=== PATIENT | male | born 1960 | race Caucasian/White ===

== ENCOUNTER 2019-11-10 08:40 | Emergency (ER) | payer SELFPAY ==
[2019-11-10] MEDS ORDERED: IBUPROFEN 400 MG TABLET (FP) PO ONE ×2 (08:58→09:22)
--- NOTE | 2019-11-10 08:58 | PDOC ---
History of Present Illness - General Chief Complaint: Injury Stated Complaint: RT 2ND FINGER INJURY Time Seen by Provider: 11/10/19 08:47 History Source: Patient Exam Limitations: No Limitations - History of Present Illness Initial Comments: 59 yo M presents s/p avulsion injury to R index finger. He states that he was working with a trash truck, had his finger inside a metal hole as something heavy moved by. It avulsed the tip of his finger. He has applied direct pressure. Last tdap 2013. No other injuries. C/o moderate pain at the site. Mild oozing of blood. Past History - Past Medical History Allergies/Adverse Reactions: Allergies Allergy/AdvReac Type Severity Reaction Status Date / Time No Known Allergies Allergy Verified 11/10/19 08:41 Home Medications: Ambulatory Orders Escitalopram Oxalate [Lexapro -] 20 mg PO DAILY 01/12/14 Amox-Tr/K Cl [Augmentin - 875Mg Tablet] 1 tab PO BID #14 tablet 11/10/19 - Surgical History Abdominal Surgery: Yes (HERNIA) - Immunization History Immunization Up to Date: Yes - Psycho Social/Smoking Cessation Hx Smoking History: Unknown if ever smoked Have you smoked in the past 12 months: No Hx Alcohol Use: Yes (SOCIAL) Drug/Substance Use Hx: No Substance Use Type: None Review of Systems - Review of Systems Able to Perform ROS?: Yes Comments:: GENERAL/CONSTITUTIONAL: No fever or chills. No weakness. MUSCULOSKELETAL: No joint or muscle swelling or pain. No neck or back pain. SKIN: No rash. +Skin avulsion to tip of R 2nd finger NEUROLOGIC: No headache, vertigo, loss of consciousness, or change in strength/ sensation. ENDOCRINE: No increased thirst. No abnormal weight change. HEMATOLOGIC/LYMPHATIC: No anemia, easy bleeding, or history of blood clots. *Physical Exam - Physical Exam GENERAL: Awake, alert, and fully oriented, in no acute distress HEAD: No signs of trauma EXTREMITIES: Normal range of motion, no edema. No clubbing or cyanosis. No cords, erythema, or tenderness NEUROLOGICAL: Cranial nerves II through XII grossly intact. Normal speech, normal gait. Motor and sensation intact SKIN: Warm, dry, normal turgor, no rashes. +Skin avulsion to the tip of the R index finger, slight oozing of blood. +Exposure of subcutaneous fat. Tendon function intact. Medical Decision Making - Medical Decision Making 11/10/19 08:59 Wound was irrigated with saline. Will give tdap in ED. XR to r/o fracture, then will contact ortho. Pt given motrin 400 mg, as he took 400 mg this morning at 5: 30 for something unrelated. 11/10/19 10:36 Case d/w Dr. Costello. Recommended dressing with xeroform, splint, f/u with Dr. Hess in the office on Wednesday (it is currently Wednesday). Discharge - Discharge Information Problems reviewed: Yes Clinical Impression/Diagnosis: Avulsion, finger tip Qualifiers: Encounter type: initial encounter Qualified Code(s): S61.209A - Unspecified open wound of unspecified finger without damage to nail, initial encounter Condition: Stable Disposition: HOME - Admission No - Additional Discharge Information Prescriptions: Amox-Tr/K Cl [Augmentin - 875Mg Tablet] 1 tab PO BID #14 tablet - Follow up/Referral Referrals: Darwin Hess MD [Staff Physician] - - Patient Discharge Instructions Patient Printed Discharge Instructions: DI for Avulsion Laceration (Not Requiring Sutures) - Post Discharge Activity
[2019-11-10] MEDS ORDERED: DIPHTH,PERTUSS(ACELL),TET 0.5 ML DISP.SYRIN IM ONE ×2 (08:59→09:22)
[2019-11-10 09:03] VITALS: BP 147/88; PULSE 78; TEMP 98.1; BMI 29.8
[2019-11-10] MEDS ORDERED: AMOX TR/POT CLAV 875MG/125MG TABLETS (FP) PO ONE (10:02)
[2019-11-10] MEDS ORDERED: AMOX TR/POT CLAV 875MG/125MG TABLETS (FP) ONE (10:05)
== END 2019-11-10 10:54 | disposition home or self-care (01) ==
LOC: FER 08:40
PROC: 2W3JX1Z Immobilization of Right Finger using Splint (ICD-10-PCS; principal; 2019-11-10)
PROC: 3E0234Z Introduction of Serum, Toxoid and Vaccine into Muscle, Percutaneous Approach (ICD-10-PCS; 2019-11-10)
DX: S61.200A Unspecified open wound of right index finger without damage to nail, initial encounter (principal); W45.8XXA Other foreign body or object entering through skin, initial encounter; Y93.89 Activity, other specified; Y92.9 Unspecified place or not applicable
CPT/HCPCS: 73140-TC-RT-FY; 90715; 99283-25